=== PATIENT | male | born 1965 | race African-American/Black ===

== ENCOUNTER 2023-05-07 13:42 | Inpatient (IN) | payer OTHER ==
[2023-05-07 14:26] VITALS: BMI 22.2
[2023-05-07] MEDS ORDERED: BENZONATATE 200 MG CAPSULE PO PRN (17:37)
[2023-05-07] MEDS ORDERED: NALOXONE HCL 0.4 MG/ML VIAL IM PRN (17:37)
[2023-05-07] MEDS ORDERED: NICOTINE POLACRILEX 2 MG GUM BUC PRN (17:37)
[2023-05-07] MEDS ORDERED: LOPERAMIDE HCL 2 MG CAPSULE PO PRN (17:37)
[2023-05-07] MEDS ORDERED: BISMUTH SUBSALICYLATE 524 MG/30 ML PO PRN (17:37)
[2023-05-07] MEDS ORDERED: BENZOCAINE/MENTHOL (CHLORASEPTIC ) LOZENGE MM PRN (17:37)
[2023-05-07] MEDS ORDERED: IBUPROFEN 400 MG TABLET (FP) PO PRN (17:37)
[2023-05-07] MEDS ORDERED: ONDANSETRON *ODT* 4 MG TABLET SL PRN (17:37)
[2023-05-07] MEDS ORDERED: POLYETHYLENE GLYCOL (HEALTHYLAX) 3350 17 GM PACKET PO PRN (17:37)
[2023-05-07] MEDS ORDERED: IBUPROFEN 600 MG TABLET (FP) PO PRN (17:37)
[2023-05-07] MEDS ORDERED: guaiFENesin 600 MG TABLET.ER (FP) PO PRN (17:37)
[2023-05-07] MEDS ORDERED: MAG HYDROX/AL HYDROX/SIMETH 30 ML UNIT-DOSE CUP PO PRN (17:37)
[2023-05-07] MEDS ORDERED: MAGNESIUM HYDROX 2400MG/30ML ORAL SUSPENSION 30 ML CUP PO PRN (17:37)
[2023-05-07] MEDS ORDERED: DICYCLOMINE HCL 10 MG CAPSULE PO PRN (17:37)
[2023-05-07] MEDS ORDERED: P-EPHED 60MG/TRIPROLIDI 2.5MG TABLET PO PRN (17:37)
[2023-05-07] MEDS ORDERED: NALOXONE HCL (KLOXXADO) 8 MG SPRAY NS PRN (17:37)
[2023-05-07] MEDS: MELATONIN 5 MG TABLETS PO SCH (22:41)
[2023-05-07] MEDS: THIAMINE HCL 100 MG TABLET (FP) PO SCH (22:41)
[2023-05-08] MEDS ORDERED: methaDONE HCL 10 MG TABLET (FOR DETOX USE ONLY) PO ONE (09:00)
[2023-05-08] MEDS: PRENATAL VITAMINS W/ FOLIC ACID TABLET (FP) PO SCH (09:34)
[2023-05-08] MEDS: ACETAMINOPHEN 325 MG TABLET (FP) PO PRN ×2 (11:23→20:36)
[2023-05-08] MEDS: cloNIDine HCL 0.1 MG TABLET PO PRN (21:36)
[2023-05-08] MEDS: METHOCARBAMOL 500 MG TABLET PO PRN (21:36)
[2023-05-08] MEDS: THIAMINE HCL 100 MG TABLET (FP) PO SCH (22:53)
[2023-05-08] MEDS: MELATONIN 5 MG TABLETS PO SCH (22:54)
[2023-05-09] MEDS: cloNIDine HCL 0.1 MG TABLET PO PRN (06:16)
[2023-05-09] MEDS: ACETAMINOPHEN 325 MG TABLET (FP) PO PRN ×2 (06:20→17:09)
[2023-05-09] MEDS: amLODIPine BESYLATE 5 MG TABLET (FP) PO SCH (10:33)
[2023-05-09] MEDS: PRENATAL VITAMINS W/ FOLIC ACID TABLET (FP) PO SCH (10:33)
[2023-05-09 11:13] LABS: HEMATOCRIT 34.8 % (35.4-49); HEMOGLOBIN 11.4 GM/dL (11.7-16.9); MCH 29.8 pg (25.7-33.7); MCHC 32.9 g/dl (32.0-35.9); MEAN CELL VOLUME 90.5 fl (80-96); MEAN PLT VOLUME 8.6 fl (7.5-11.1); PLATELET COUNT 257 10^3/uL (134-434); RBC 3.84 M/mm3 (4.00-5.60); RDW 12.3 % (11.9-15.9); WHITE BLOOD COUNT 4.7 K/mm3 (4.0-10.0)
[2023-05-09 11:52] LABS: POTASSIUM 3.9 mmol/L (3.5-5.1)
[2023-05-09 11:59] LABS: CALCIUM 8.3 mg/dL (8.5-10.1)
[2023-05-09 12:00] LABS: ALBUMIN 2.7 g/dl (3.4-5.0); BLOOD UREA NITROGEN 9.3 mg/dL (7-18)
[2023-05-09 12:03] LABS: CREATININE 0.7 mg/dL (0.55-1.3)
[2023-05-09 12:04] LABS: BILIRUBIN,TOTAL 0.6 mg/dL (0.2-1); TOT PROT 5.4 g/dl (6.4-8.2)
[2023-05-09] MEDS: METHOCARBAMOL 500 MG TABLET PO PRN (22:33)
[2023-05-09] MEDS: THIAMINE HCL 100 MG TABLET (FP) PO SCH (22:33)
[2023-05-09] MEDS: MELATONIN 5 MG TABLETS PO SCH (22:34)
[2023-05-10] MEDS: cloNIDine HCL 0.1 MG TABLET PO PRN ×2 (02:07→22:10)
[2023-05-10] MEDS ORDERED: methaDONE HCL 10 MG TABLET (FOR DETOX USE ONLY) PO ONE (10:00)
[2023-05-10] MEDS: METHOCARBAMOL 500 MG TABLET PO PRN ×2 (10:10→22:10)
[2023-05-10] MEDS: amLODIPine BESYLATE 5 MG TABLET (FP) PO SCH (10:10)
[2023-05-10] MEDS: PRENATAL VITAMINS W/ FOLIC ACID TABLET (FP) PO SCH (10:10)
[2023-05-10] MEDS: ACETAMINOPHEN 325 MG TABLET (FP) PO PRN (18:29)
[2023-05-10] MEDS: THIAMINE HCL 100 MG TABLET (FP) PO SCH (22:10)
[2023-05-10] MEDS: MELATONIN 5 MG TABLETS PO SCH (22:10)
[2023-05-11] MEDS: amLODIPine BESYLATE 5 MG TABLET (FP) PO SCH (09:59)
[2023-05-11] MEDS: METHOCARBAMOL 500 MG TABLET PO PRN ×2 (10:00→22:14)
[2023-05-11] MEDS: PRENATAL VITAMINS W/ FOLIC ACID TABLET (FP) PO SCH (10:01)
[2023-05-11] MEDS: ACETAMINOPHEN 325 MG TABLET (FP) PO PRN (14:48)
[2023-05-11] MEDS: cloNIDine HCL 0.1 MG TABLET PO PRN (22:15)
[2023-05-11] MEDS: MELATONIN 5 MG TABLETS PO SCH (22:15)
[2023-05-11] MEDS: THIAMINE HCL 100 MG TABLET (FP) PO SCH (22:15)
[2023-05-12] MEDS ORDERED: methaDONE HCL 10 MG TABLET (FOR DETOX USE ONLY) PO ONE (10:00)
[2023-05-12] MEDS: METHOCARBAMOL 500 MG TABLET PO PRN (10:03)
[2023-05-12] MEDS: amLODIPine BESYLATE 5 MG TABLET (FP) PO SCH (10:04)
[2023-05-12] MEDS: PRENATAL VITAMINS W/ FOLIC ACID TABLET (FP) PO SCH (10:04)
[2023-05-12] MEDS: ACETAMINOPHEN 325 MG TABLET (FP) PO PRN ×2 (13:34→22:18)
[2023-05-12] MEDS: MELATONIN 5 MG TABLETS PO SCH (22:17)
[2023-05-12] MEDS: THIAMINE HCL 100 MG TABLET (FP) PO SCH (22:19)
[2023-05-12] MEDS: cloNIDine HCL 0.1 MG TABLET PO PRN (22:21)
[2023-05-13 06:34] VITALS: RESP 18
[2023-05-13] MEDS: ACETAMINOPHEN 325 MG TABLET (FP) PO PRN (08:46)
[2023-05-13 09:47] VITALS: BP 149/77; PULSE 71; TEMP 97.3
[2023-05-13] MEDS: amLODIPine BESYLATE 5 MG TABLET (FP) PO SCH (10:36)
[2023-05-13] MEDS: PRENATAL VITAMINS W/ FOLIC ACID TABLET (FP) PO SCH (10:36)
== END 2023-05-13 11:05 | disposition home or self-care (01) | DRG 773 ==
LOC: YASAS 13:42 → Y6N 17:51
PROVIDERS: ADMIT Allergy & Immunology; ATTEND Surgery
PROC: HZ2ZZZZ Detoxification Services for Substance Abuse Treatment (ICD-10-PCS; principal; 2023-05-07)
DX: F11.23 Opioid dependence with withdrawal (principal); F14.20 Cocaine dependence, uncomplicated; F10.10 Alcohol abuse, uncomplicated; F12.20 Cannabis dependence, uncomplicated; F17.210 Nicotine dependence, cigarettes, uncomplicated; F29 Unspecified psychosis not due to a substance or known physiological condition; G62.9 Polyneuropathy, unspecified; I10 Essential (primary) hypertension; R73.9 Hyperglycemia, unspecified; Z85.46 Personal history of malignant neoplasm of prostate; Z99.89 Dependence on other enabling machines and devices; Z88.8 Allergy status to other drugs, medicaments and biological substances
CPT/HCPCS: 36415; 80053; 85027; 86780; 87635; 93005; 93010